=== PATIENT | female | born 1930 | race Caucasian/White ===

== ENCOUNTER → 2019-02-13 | Emergency (ER) | payer OTHER, BC ==
[~2019-02-13] VITALS: Ht 152.4 cm; Wt 63.5 kg
[~2019-02-13] MED LIST: ACETAMINOPHEN-1 EAC1 PO; ADULT LOW DOSE81 MG PO; ATIVAN1 MG PO; NORCO 5-325 TA1 EACH PO; PERCOCET 5-3251 EACH PO; PHENERGAN 25 MG25 M1 PO; TAMIFLU75 MG PO; TOPROL XL25 MG PO; VALIUM5 MG PO
[2019-02-13 09:04] LABS: ABSOLUTE NEUTROPHILS 4.5 thou/uL (1.4-8.2); BASOPHILS 1.4 % (0.0-2.0); EOSINOPHILS 5.1 % (0.0-3.0); HEMATOCRIT 38.5 % (37.0-47.0); HEMOGLOBIN 12.7 gm/dL (12.0-15.0); LYMPHOCYTES 12.3 % (24.0-44.0); MCH 30.9 pg (26.0-34.0); MCHC 33.1 g/dL (28.0-37.0); MCV 93.6 fL (80.0-100.0); MONOCYTES 9.4 % (1.0-8.0); PLATELET COUNT 273 thou/uL (150-400); POLYS 71.8 % (36.0-66.0); RBC 4.11 mil/uL (4.20-5.00); RDW 14.4 % (10.5-14.5); WBC 6.3 thou/uL (4.0-11.0)
[2019-02-13 09:08] LABS: ANION GAP 12 mmol/L (7-16); BUN 34 mg/dL (7-18); CALCIUM 8.6 mg/dL (8.5-10.1); CHLORIDE 105 mmol/L (98-107); CO2 22 mmol/L (21-32); CREATININE 1.7 mg/dL (0.6-1.0); GLUCOSE 116 mg/dL (74-106); POTASSIUM 3.9 mmol/L (3.5-5.1); SODIUM 139 mmol/L (136-145)
[2019-02-13 09:14] LABS: ALBUMIN 3.5 g/dL (3.4-5.0); DIRECT BILIRUBIN < 0.1 mg/dL (<0.1-0.2); SGOT 22 U/L (15-37); SGPT 22 U/L (30-65); TOTAL BILIRUBIN 0.3 mg/dL (<0.1-1.0); TOTAL PROTEIN 7.3 g/dL (6.4-8.2)
[2019-02-13 09:18] LABS: URINE BILIRUBIN NEGATIVE (Negative); URINE BLOOD NEGATIVE (Negative); URINE CLARITY CLEAR; URINE COLOR YELLOW; URINE GLUCOSE-RANDOM* NEGATIVE (Negative); URINE KETONES NEGATIVE (Negative); URINE LEUKOCYTES-REFLEX TRACE (Negative); URINE NITRITE-REFLEX NEGATIVE (Negative); URINE PROTEIN (DIPSTICK) NEGATIVE (Negative); URINE SPECIFIC GRAVITY 1.015 (1.005-1.035); URINE UROBILINOGEN 0.2 E.U./dl (0.2-1.0)
[2019-02-13 12:09] VITALS: BP 139/80
--- NOTE | 2019-02-14 16:15 | EKG ---
[place] [address] [facility] [place] [address] ELECTROCARDIOGRAM REPORT Name: TAPAN ALARCON [id number] Admission: 02/13/19 Attend Phys: Discharge: Date of : 34 Report #: [id number] THIS REPORT FOR: //name// [facility] ED Test Date: 2019-02-13 Test Time: 08:29:42 Pat Name: TAPAN ALARCON Department: Room: Gender: F Informatics Specialist: CATHERINE : 1930 Requested By: Emilie Starkey Order Number: [id number] MD: Rafael Cline Measurements Intervals Colbert Rate: 86 P: -24 WI: 185 QRS: -13 QRSD: 81 T: 58 QT: 369 QTc: 442 Interpretive Statements Sinus rhythm Consider V2 V3 reversal Early transition Left ventricular hypertrophy Compared to ECG 02/12/2014 01:47:45 No significant change Electronically Signed On 02-14-2019 16:14:58 MACHINE I CUTTER by Rafael Cline [email or web address] <ELECTRONICALLY SIGNED> By: Rafael Cline MD 02/14/19 1614 0829 8 Rafael Cline MD /SYLVIA
== END ==
LOC: ER 08:25
PROVIDERS: Emergency Medicine
DX: R53.1 Weakness (principal); R19.7 Diarrhea, unspecified; M19.90 Unspecified osteoarthritis, unspecified site; Z96.651 Presence of right artificial knee joint

== ENCOUNTER 2020-08-22 03:44 | Inpatient (IN) | payer OTHER, BC ==
[~2020-08-22] VITALS: Ht 152.4 cm; Wt 52.2 kg
--- NOTE | ~2020-08-22 | EMS ---
[address] [address] EMS Patient Care Report Name: TAPAN ALARCON Room #: REG Avinash#: [id number] Admission: 08/22/20 Attend Phys: Discharge: Date of : 34 Report #: [id number] THIS REPORT FOR: //name// Report Transmitted: 08/22/2020 07:06 EMS Care Summary [facility] MED-ACT Incident [id number] @ 08/22/2020 02:51 Incident Location [address] [place] [address] [place] [address] Patient TAPAN ALARCON Female, 89 Years 1930 Patient Address [address] [place] [address] [place] [address] Patient History Hypertension (HTN),Cardiac - Stent, Patient Allergies No known allergies, Patient Medications Brilinta, Amlodipine, Lisinopril, Chief Complaint Diarrhea for the last two days Disposition Transported No Lights/[place] Dispatch Reason Chest Pain (Non-Traumatic) Transported To [facility] Narrative Arrived to find an 89 yr old female patient sitting up on the side of her bed in the care of E31 in no obvious acute distress. Patient reports for the last two days she has been having diarrhea. Patient states yesterday morning she took two doses of Imodium and since then she has not had any episodes of [address] [address] EMS Patient Care Report Name: TAPAN ALARCON Room #: REG Avinash#: [id number] Admission: 08/22/20 Attend Phys: Discharge: Date of : 34 Report #: [id number] diarrhea. Patient is unaware if there was any blood in her stool. Patient states this morning she woke up about 0100 with pain to her left flank about the level of her T11-L1 area. Patient rates her pain about a "5" or "6" on a 0 to 10 scale. Patient states her pain came on at this level when it started and has not changed since. Patient denies any nausea/vomiting, fever, cough, chills, or shortness of breath. A: See assessment tab. Physical exam and vital signs were performed by E31 prior to our arrival. BBP. ECG. 12-lead lead. Patient walked with assistance out to the garage and sat on the cot. Moved to unit. En route to [facility]. Vital signs and ECG were monitored during transport. Patient rested on the cot and had no changes to her condition during transport. We contacted [facility] on the [employer] radio. Patient was alert with stable vital signs upon arrival at [facility]. Patient care was transferred to an ED RN in room 1 at [facility] and the cot sheet was utilized to transfer patient care. Patient requested ambulance transport to [facility]. Initial Vitals @03:04R: 16,BP: 154/64,GCS: 15,Revised Trauma: 12, @PTAP: 78,R: 16,BP: 172/72,Pain: 5/10,GCS: 15,SpO2: 96,Revised Trauma: 12, @03:28P: 75,R: 16,BP: 156/76,GCS: 15,SpO2: 95,Revised Trauma: 12,WI Suspected: false @03:08P: 73,R: 16,GCS: 15,SpO2: 95, @03:18P: 75,R: 16,BP: 174/76,Pain: 5/10,GCS: 15,Temp: 96.5F,SpO2: 96,Revised Trauma: 12,WI Suspected: false Assessments @03:05MENTAL:Person Oriented,Time Oriented,Place Oriented,Event Oriented,SKIN:HEENT:LUNG SOUNDS:General: Diarrhea,ABDOMEN:General: Diarrhea,PELVIS//GI:EXTREMITIES:Left Arm: No Abnormalities,Right Arm: No Abnormalities,Left Leg: No Abnormalities,Right Leg: No Abnormalities,PULSE:Radial: 2+ Normal,NEURO:No Abnormalities, Impression Back Pain Procedures @03:0812-Lead ECGResponse: UnchangedSucceeded@03:13Surgical Mask on PatientResponse: Unchanged Timeline 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,BP: 172/72 M,PULSE: 78,RR: 16 R,SPO2: 96 Ox,ETCO2: ,BG: ,PAIN: 5,GCS: 15, [address] [address] EMS Patient Care Report Name: TAPAN ALARCON Room #: REG JeanPancho#: [id number] Admission: 08/22/20 Attend Phys: Discharge: Date of : 34 Report #: [id number] 02:49,Call Received 02:49,Psap Call 02:51,Dispatched 02:52,En Route 02:58,On Scene 02:59,At Patient 03:04,BP: 154/64 M,PULSE: ,RR: 16 R,SPO2: Ox,ETCO2: ,BG: ,PAIN: ,GCS: 15, 03:08,12-Lead ECG,Response: UnchangedSucceeded, 03:08,BP: / M,PULSE: 73,RR: 16 R,SPO2: 95 Ox,ETCO2: ,BG: ,PAIN: ,GCS: 15, 03:13,Surgical Mask on Patient,Response: Unchanged 03:18,BP: 174/76 M,PULSE: 75,RR: 16 R,SPO2: 96 Ox,ETCO2: ,BG: ,PAIN: 5,GCS: 15, 03:22,Depart Scene 03:28,BP: 156/76 M,PULSE: 75,RR: 16 R,SPO2: 95 Ox,ETCO2: ,BG: ,PAIN: ,GCS: 15, 03:30,At Destination 03:56,Call Closed Disclaimer v1.1 Copyright 2020 [employer] This EMS Care Summary contains data elements from the applicable legal record (which may be displayed differently). It is designed to provide pertinent information for the following purposes: continuity of care, clinical quality, and state data reporting. The complete legal record is available to ED staff and administrators of the receiving hospital in [facility]'s Patient Tracker. All data is provided "as is."
[2020-08-22 03:44] VITALS: BP 158/58
[2020-08-22 04:45] LABS: ABSOLUTE NEUTROPHILS 7.2 thou/uL (1.4-8.2); EOSINOPHILS 2.9 % (0.0-3.0); HEMATOCRIT 27.4 % (37.0-47.0); HEMOGLOBIN 9.1 gm/dL (12.0-15.0); LYMPHOCYTES 8.8 % (24.0-44.0); MCH 32.2 pg (26.0-34.0); MCHC 33.3 g/dL (28.0-37.0); MCV 96.5 fL (80.0-100.0); PLATELET COUNT 304 thou/uL (150-400); POLYS 76.3 % (36.0-66.0); RBC 2.84 mil/uL (4.20-5.00); RDW 17.3 % (10.5-14.5); WBC 9.4 thou/uL (4.0-11.0)
[2020-08-22 04:53] LABS: ANION GAP 15 mmol/L (7-16); BUN 43 mg/dL (7-18); CHLORIDE 108 mmol/L (98-107); CO2 15 mmol/L (21-32); CREATININE 1.6 mg/dL (0.6-1.0); GLUCOSE 98 mg/dL (74-106); POTASSIUM 3.9 mmol/L (3.5-5.1); SODIUM 138 mmol/L (136-145)
[2020-08-22 04:57] LABS: ALBUMIN 3.3 g/dL (3.4-5.0); DIRECT BILIRUBIN < 0.1 mg/dL (<0.1-0.2); SGOT 18 U/L (15-37); SGPT 16 U/L (30-65); TOTAL BILIRUBIN 0.3 mg/dL (0.2-1.0); TOTAL PROTEIN 6.9 g/dL (6.4-8.2)
[2020-08-22 06:45] LABS: URINE BILIRUBIN NEGATIVE (Negative); URINE BLOOD 3+ (Negative); URINE CLARITY CLEAR; URINE COLOR YELLOW; URINE GLUCOSE-RANDOM* NEGATIVE (Negative); URINE KETONES NEGATIVE (Negative); URINE LEUKOCYTES-REFLEX 2+ (Negative); URINE NITRITE-REFLEX NEGATIVE (Negative); URINE PROTEIN (DIPSTICK) NEGATIVE (Negative); URINE UROBILINOGEN 0.2 E.U./dl (0.2-1.0)
[2020-08-22 06:58] LABS: BACTERIA-REFLEX 1-9 Few /HPF (None Seen); CASTS None Seen /LPF (None Seen); CRYSTALS None Seen /LPF (None Seen); SQUAMOUS 0-3 Few /LPF (0-3); URINE RBC 1-2 Rare /HPF (NONE SEEN); URINE WBC-REFLEX 6-15 Few /HPF (0-5)
[2020-08-22 09:44] VITALS: BP 151/61
[2020-08-22 09:47] LABS: % SATURATION 17 % (20-39); IRON 34 ug/dL (50-170); TIBC 202 ug/dL (250-450)
[2020-08-22 09:55] VITALS: BP 149/61
[2020-08-22 10:15] LABS: FOLIC ACID 8.8 ng/mL (8.6-58.9)
[2020-08-22 12:16] VITALS: BP 139/63
[2020-08-22] MEDS ORDERED: BRILINTA90 MG PO (12:53)
[2020-08-22] MEDS ORDERED: DIAZEPAM2 MG PO (12:56)
[2020-08-22] MEDS ORDERED: LIPITOR 40 MG T40 M1 PO (12:57)
[2020-08-22] MEDS ORDERED: LISINOPRIL5 MG PORT (12:57)
[2020-08-22] MEDS ORDERED: IMODIUM A-D2 MG PO (13:03)
[2020-08-22 15:46] VITALS: BP 148/70
--- NOTE | 2020-08-22 16:21 | NUR ---
ASSESSMENT: CM REVIEWED CHART AND MET WITH PATIENT AT THE BEDSIDE. PT WAS ADMITTED DUE TO LEFT UPJ STONE. PT IS ON IV FLUIDS AND IV ANBX. PT REPORTS LIVING IN A HOUSE ALONE. PT HAS A FRIEND WHO IS SUPPORTIVE. PT REPORTS SHE JUST RECENTLY LEFT A SNF [facility] AND IS GETTING HOME HEALTH AT HOME BUT UNSURE THE AGENCY. CM REACHED OUT TO RADHA AT [facility] TO CLARIFY WHICH HH AND AWAITING INPUT AT THIS TIME. PT REPORTS SHE NORMALLY AMBULATES USING A CANE. PT HAS ABOUT 3 STEPS TO ENTER THE HOME WITH ITEMS SHE HOLDS ONTO AND NO STEPS ONCE INSIDE. PT REPORTS ALSO HAVING A WALKER AT HOME IF NEEDED. CM DISCUSSED ROLE. PT REPORTS SHE IS HOPEFUL SHELL BE ABLE TO RETURN HOME. CM WILL CONTINUE TO FOLLOW TO ASSIST NEEDED. PT IS TO HAVE A KUB.
[2020-08-22] MEDS ORDERED: CEFUROXIME500 MG PO (16:25)
[2020-08-22] MEDS ORDERED: IRON325 PO (16:25)
[2020-08-22 16:42] VITALS: BP 148/70
--- NOTE | 2020-08-22 17:34 | NUR ---
RN WENT OVER ALL DISCHARGE TEACHING AND ALL QUESTIONS ANSWERED, IV OUT UPON DISCHARGE, WILL BE WHEELED OUT TO SECURITY TO USE TAXI VOUCHER.
== END 2020-08-22 19:00 | disposition home or self-care (01) | DRG 690 ==
LOC: ER 03:44 → EROBS 08:41 → 4S 10:01
PROVIDERS: Emergency Medicine; Nurse Practitioner; ADMIT Hospitalist; ATTEND Hospitalist
DX: N13.6 Pyonephrosis (principal); M19.90 Unspecified osteoarthritis, unspecified site; N17.9 Acute kidney failure, unspecified; E78.5 Hyperlipidemia, unspecified; I25.10 Atherosclerotic heart disease of native coronary artery without angina pectoris; N18.9 Chronic kidney disease, unspecified; I12.9 Hypertensive chronic kidney disease with stage 1 through stage 4 chronic kidney disease, or unspecified chronic kidney disease; E86.0 Dehydration; D64.9 Anemia, unspecified; Z96.651 Presence of right artificial knee joint; Z95.5 Presence of coronary angioplasty implant and graft; Z79.899 Other long term (current) drug therapy; Z87.442 Personal history of urinary calculi; Z98.42 Cataract extraction status, left eye; Z98.41 Cataract extraction status, right eye; Z72.89 Other problems related to lifestyle
CPT/HCPCS: 10195